=== PATIENT | male | born 1940 | race Caucasian/White ===

== ENCOUNTER 2023-08-23 15:44 | Inpatient (IN) | payer MEDICARE ==
[~2023-08-23 15:44] MED LIST: Iopamidol-370 76% 500 ML MDV (1 ML CHARGE) ONE
[2023-08-23] MEDS ORDERED: NOREPINEPHRINE 8 MG/250 ML-D5W 250 ML ONE (16:04)
[2023-08-23 16:34] LABS: #Monocytes 0.3 thou/uL (0.11-0.59); #Neutrophils 3.8 thou/uL (1.40-6.50); %Basophils 0.3 % (0.0-1.0); %Eosinophils 0.6 % (0.0-10.0); %Monocytes 5.5 % (0.0-10.0); %Neutrophils 61.3 % (42.0-75.0); Hematocrit 33.3 % (42.0-52.0); Hemoglobin 11.3 g/dL (14.0-18.0); Mean Corpuscular HGB CONC 33.9 g/dL (32.0-36.0); Mean Corpuscular Hemoglobin 32.4 pg (27.0-31.0); Mean Corpuscular Volume 95.4 fl (78.0-98.0); Mean Platelet Volume 8.6 fL (7.4-10.4); Platelet Count 179 10x3/uL (130-400); RBC Distribution Width 14.1 % (11.5-14.5); Red Blood Cell (RBC) Count 3.49 mill/uL (4.70-6.10); White Blood Cell (WBC) Count 6.2 10x3/uL (4.8-10.8)
[2023-08-23 16:59] LABS: ALT (SGPT) 29 U/L (8-55); AST (SGOT) 26 U/L (5-34); Albumin 2.3 g/dL (3.4-4.8); Alkaline Phosphatase 54 U/L (40-110); Anion Gap 10 mmol/L (10-20); BUN (Urea Nitrogen) 23 mg/dL (8.4-25.7); Bilirubin, Total 0.6 mg/dL (0.2-1.2); CK (CPK) 44 U/L (30-200); Calc. Creatinine Clearance 0 mL/min (70-130); Calcium 7.5 mg/dL (7.8-10.44); Carbon Dioxide 22 mmol/L (23-31); Chloride 106 mmol/L (98-107); Estimated GFR 73; Globulin 2.1 g/dL (2.4-3.5); Glucose 118 mg/dL (83-110); Lipase 10 U/L (8-78); Potassium 4.2 mmol/L (3.5-5.1); Protein, Total 4.4 g/dL (5.8-8.1); Sodium 134 mmol/L (136-145)
[2023-08-23 17:03] LABS: Troponin I Less than 0.010 ng/mL (< 0.028)
[2023-08-23] MEDS ORDERED: Dexamethasone 10 MG/ML VIAL ONE (17:44)
[2023-08-23] MEDS ORDERED: Vasopressin 20 UNITS/ML VIAL ONE (17:55)
[2023-08-23] MEDS ORDERED: Ondansetron PF 4 MG/2 ML Vial IVP PRN (19:43)
[2023-08-23] MEDS ORDERED: Acetaminophen 325 MG (10.15 ML) UDCUP PO PRN (19:43)
[2023-08-23] MEDS ORDERED: Electrolyte Replacement Protocol IVPB SCH (19:43)
[2023-08-23] MEDS ORDERED: Hydrocortisone Sod Succ/PF 100 mg/2 ml Vial IVP SCH (20:00)
[2023-08-23] MEDS ORDERED: Glucagon 1 MG/ML KIT IM PRN (20:19)
[2023-08-23] MEDS ORDERED: Dextrose 50% Abboject 50 ML SYRINGE SLOW IVP PRN (20:19)
[2023-08-23] MEDS ORDERED: Dextrose 5% in Water 1,000 ML IV PRN (20:19)
[2023-08-23] MEDS ORDERED: Sodium Chloride 0.9% 1,000 ML IV SCH ×2 (20:30→23:45)
[2023-08-23] MEDS: NOREPINEPHRINE 8 MG/250 ML-D5W 250 ML IVPB PRN (21:00)
[2023-08-23] MEDS ORDERED: Piperacillin/Tazobactam 3.375 GM in Sodium Chloride 0.9% 100 ML IVPB SCH (23:00)
[2023-08-23] MEDS ORDERED: Albumin 25% 25 GM (100 mL) BOT IVPB SCH (23:00)
[2023-08-23] MEDS ORDERED: DOBUTamine 500 mg/250 ml 250 ML IVPB SCH (23:15)
[2023-08-23 23:30] LABS: Lactic Acid 3.1 mmol/L (0.5-2.2)
[2023-08-23 23:37] LABS: #Monocytes 1.2 thou/uL (0.11-0.59); #Neutrophils 20.2 thou/uL (1.40-6.50); %Basophils 0.2 % (0.0-1.0); %Lymphocytes 3.2 % (21.0-51.0); %Monocytes 5.5 % (0.0-10.0); %Neutrophils 90.3 % (42.0-75.0); Mean Corpuscular HGB CONC 33.8 g/dL (32.0-36.0); Mean Corpuscular Hemoglobin 32.4 pg (27.0-31.0); Mean Corpuscular Volume 96.1 fl (78.0-98.0); Mean Platelet Volume 9.1 fL (7.4-10.4); Platelet Count 217 10x3/uL (130-400); RBC Distribution Width 13.8 % (11.5-14.5)
[2023-08-23] MEDS ORDERED: DOBUTamine 500 mg/250 ml 0 ML ONE (23:42)
[2023-08-23 23:46] LABS: ALT (SGPT) 36 U/L (8-55); AST (SGOT) 42 U/L (5-34); Albumin 2.7 g/dL (3.4-4.8); Alkaline Phosphatase 73 U/L (40-110); Anion Gap 17 mmol/L (10-20); BUN (Urea Nitrogen) 29 mg/dL (8.4-25.7); Bilirubin, Total 1.2 mg/dL (0.2-1.2); Calc. Creatinine Clearance 0 mL/min (70-130); Calcium 7.1 mg/dL (7.8-10.44); Carbon Dioxide 14 mmol/L (23-31); Chloride 107 mmol/L (98-107); Estimated GFR 49; Globulin 2.4 g/dL (2.4-3.5); Glucose 184 mg/dL (83-110); Potassium 4.5 mmol/L (3.5-5.1); Protein, Total 5.1 g/dL (5.8-8.1); Sodium 133 mmol/L (136-145)
[2023-08-23 23:47] LABS: Hematocrit 47.1 % (42.0-52.0); Hemoglobin 15.9 g/dL (14.0-18.0); White Blood Cell (WBC) Count 22.4 10x3/uL (4.8-10.8)
[2023-08-24 00:02] VITALS: BMI 32.0
[2023-08-24 00:36] LABS: CO2 Tension 36.2 mmHg (35.0-45.0); Calcium, Ionized (arterial) 1.01 mmol/L (1.12-1.30); Carboxyhemoglobin (COHb) 1.4 gm% (0.0-3.0); Hematocrit-ABG 43 % (42.0-52.0); Hemoglobin (Hb) 14.6 g/dL (14.0-18.0); O2 Tension (PaO2), arterial 86.5 mmHg (> 60.0)
[2023-08-24 00:37] LABS: Actual Bicarbonate (HCO3a) 13.3 mEq/L (22-28); pH, Arterial 7.184 (7.35-7.45)
[2023-08-24 00:38] LABS: Puncture Site Arterial Line
[2023-08-24] MEDS: NOREPINEPHRINE 8 MG/250 ML-D5W 250 ML IVPB PRN ×2 (00:45→09:47)
[2023-08-24] MEDS ORDERED: Sodium Bicarbonate 150 MEQ in Dextrose 5% in Water 1,000 ML IV SCH (00:45)
[2023-08-24] MEDS ORDERED: Lactated Ringer's 1,000 ML IV SCH ×2 (00:45→01:45)
[2023-08-24] MEDS ORDERED: Sodium Bicarb 50 MEQ/50 ML VIAL IVP SCH ×2 (00:45→00:53)
[2023-08-24 00:54] LABS: Bilirubin Negative (Negative); Blood, Urine Negative (Negative); Glucose, Urine (Dipstick) Negative (Negative); Ketone, Urine Trace mg/dL (Negative); Leukocyte Negative (Negative); Nitrite Negative (Negative); Protein, Urine (Dipstick) 100 mg/dL (Neg-Trace)
[2023-08-24 00:55] LABS: Clarity Clear (Clear)
[2023-08-24] MEDS ORDERED: Sodium Bicarb 50 MEQ/50 ML VIAL ONE ×2 (00:56→01:36)
[2023-08-24 00:58] LABS: Bacteria/HPF None Seen HPF (None Seen); CAUTI Indications for Culture Dysuria,urgency,freq; RBC/HPF 0-3 HPF (0-3); Squamous Epithelial None Seen HPF (0-3); WBC/HPF 0-3 HPF (0-3)
[2023-08-24 00:59] LABS: Urine Culture Reflex No No
[2023-08-24] MEDS ORDERED: Sodium Bicarbonate 150 MEQ in Sterile Water 1,000 ML IV SCH (01:15)
[2023-08-24] MEDS ORDERED: Calcium Chloride 1 GM/10 ML Abboject SYRINGE ONE (01:37)
[2023-08-24] MEDS ORDERED: Calcium Chloride 1 GM/10 ML Abboject SYRINGE IVP SCH (01:45)
[2023-08-24] MEDS ORDERED: Sodium Bicarb 50 MEQ/50 ML Abboject 8.4% SYRINGE IVP SCH (01:45)
[2023-08-24] MEDS: Sodium Bicarbonate 150 MEQ in Sterile Water 1,000 ML IV SCH ×3 (01:54→15:44)
[2023-08-24 03:16] LABS: Lactic Acid 5.1 mmol/L (0.5-2.2)
[2023-08-24 03:42] LABS: Hemoglobin 13.5 g/dL (14.0-18.0); Manual Diff?? YES; Mean Corpuscular HGB CONC 33.8 g/dL (32.0-36.0); Mean Corpuscular Hemoglobin 32.4 pg (27.0-31.0); Mean Corpuscular Volume 95.9 fl (78.0-98.0); Mean Platelet Volume 8.9 fL (7.4-10.4); Platelet Count 169 10x3/uL (130-400); Red Blood Cell (RBC) Count 4.17 mill/uL (4.70-6.10); White Blood Cell (WBC) Count 15.4 10x3/uL (4.8-10.8)
[2023-08-24 03:44] LABS: Delete Auto Diff?? YES
[2023-08-24 04:00] LABS: Prothrombin Time 62.2 sec (12.0-14.7)
[2023-08-24 04:05] LABS: ALT (SGPT) 25 U/L (8-55); AST (SGOT) 30 U/L (5-34); Albumin 2.6 g/dL (3.4-4.8); Alkaline Phosphatase 49 U/L (40-110); Anion Gap 17 mmol/L (10-20); BUN (Urea Nitrogen) 32 mg/dL (8.4-25.7); Bilirubin, Total 1.2 mg/dL (0.2-1.2); Calc. Creatinine Clearance 55 mL/min (70-130); Calcium 7.3 mg/dL (7.8-10.44); Carbon Dioxide 17 mmol/L (23-31); Chloride 107 mmol/L (98-107); Estimated GFR 49; Globulin 1.6 g/dL (2.4-3.5); Glucose 225 mg/dL (83-110); Potassium 4.4 mmol/L (3.5-5.1); Protein, Total 4.2 g/dL (5.8-8.1); Sodium 137 mmol/L (136-145)
[2023-08-24 04:14] LABS: INR-International Normal Ratio 6.8
[2023-08-24] MEDS ORDERED: Phytonadione 10 MG/ML AMP SLOW IVP SCH ×2 (04:15→04:20)
[2023-08-24] MEDS ORDERED: [UNRECOGNIZED DRUG - OTHER] IV SCH (04:30)
[2023-08-24] MEDS ORDERED: HUM PROTHROMBIN CPLX IV SCH (04:30)
[2023-08-24] MEDS ORDERED: Mineral Oil ENEMA PR SCH (04:30)
[2023-08-24] MEDS ORDERED: HUMAN PROTHROMBIN COMPLX IV SCH (04:30)
[2023-08-24 04:33] LABS: Band 20 % (5-11); Lymphocytes 7 % (21-51); Metamyelocyte 1 % (0-0); Monocytes 3 % (0-10); Neutrophil 69 % (42-75)
[2023-08-24 04:37] LABS: Ovalocytes SLIGHT = 2-5 cells (100X) (0-1/hpf); Platelet Adequacy Comment Platelets Normal; Tear Drops SLIGHT = 2-5 cells (100X) (0-1/hpf)
[2023-08-24] MEDS: Hydrocortisone Sod Succ/PF 100 mg/2 ml Vial IVP SCH ×4 (04:41→19:57)
[2023-08-24] MEDS: Piperacillin/Tazobactam 3.375 GM in Sodium Chloride 0.9% 100 ML IVPB SCH ×3 (04:44→19:56)
[2023-08-24] MEDS: Albumin 25% 25 GM (100 mL) BOT IVPB SCH ×3 (05:55→17:09)
[2023-08-24 10:56] LABS: Lactic Acid 4.8 mmol/L (0.5-2.2)
[2023-08-24] MEDS ORDERED: Pantoprazole 40 MG VIAL IVP SCH (11:00)
[2023-08-24] MEDS ORDERED: Sodium Chloride 0.9% (PF) 10 ML VIAL FS PRN (11:00)
[2023-08-24] MEDS: HumaLOG 300 UNITS/3 ML VIAL SC PRN ×3 (12:19→20:14)
[2023-08-24] MEDS: Polyethylene Glycol 3350 17 GM Packet PO SCH ×3 (14:34→23:21)
[2023-08-24] MEDS: Vasopressin 20 UNITS in Sodium Chloride 0.9% 50 ML IV PRN (17:08)
[2023-08-25] MEDS: Sodium Bicarbonate 150 MEQ in Sterile Water 1,000 ML IV SCH (01:48)
[2023-08-25] MEDS: Hydrocortisone Sod Succ/PF 100 mg/2 ml Vial IVP SCH ×3 (01:49→16:01)
[2023-08-25] MEDS: Vasopressin 20 UNITS in Sodium Chloride 0.9% 50 ML IV PRN (01:55)
[2023-08-25] MEDS: Piperacillin/Tazobactam 3.375 GM in Sodium Chloride 0.9% 100 ML IVPB SCH ×3 (04:38→20:27)
[2023-08-25 05:00] LABS: INR-International Normal Ratio 2.4; Prothrombin Time 27.6 sec (12.0-14.7)
[2023-08-25 05:01] LABS: PTT 41.3 sec (22.9-36.1)
[2023-08-25 05:10] LABS: Phosphorus 3.8 mg/dL (2.3-4.7)
[2023-08-25 05:12] LABS: ALT (SGPT) 18 U/L (8-55); AST (SGOT) 27 U/L (5-34); Albumin 3.1 g/dL (3.4-4.8); Alkaline Phosphatase 34 U/L (40-110); Anion Gap 14 mmol/L (10-20); BUN (Urea Nitrogen) 38 mg/dL (8.4-25.7); Bilirubin, Total 0.9 mg/dL (0.2-1.2); Calc. Creatinine Clearance 62 mL/min (70-130); Carbon Dioxide 26 mmol/L (23-31); Chloride 101 mmol/L (98-107); Estimated GFR 55; Globulin 1.5 g/dL (2.4-3.5); Glucose 149 mg/dL (83-110); Magnesium 1.6 mg/dL (1.6-2.6); Potassium 4.5 mmol/L (3.5-5.1); Protein, Total 4.6 g/dL (5.8-8.1); Sodium 136 mmol/L (136-145)
[2023-08-25 05:22] LABS: Calcium 6.6 mg/dL (7.8-10.44); Critical Call Chemistry NUR.KK6 @0521
[2023-08-25 05:44] LABS: Manual Diff?? YES; Mean Corpuscular HGB CONC 34.4 g/dL (32.0-36.0); Mean Corpuscular Hemoglobin 32.2 pg (27.0-31.0); Mean Corpuscular Volume 93.8 fl (78.0-98.0); Mean Platelet Volume 9.8 fL (7.4-10.4); RBC Distribution Width 14.4 % (11.5-14.5); Red Blood Cell (RBC) Count 3.04 mill/uL (4.70-6.10); White Blood Cell (WBC) Count 12.1 10x3/uL (4.8-10.8)
[2023-08-25 05:49] LABS: Delete Auto Diff?? YES; Hematocrit 28.5 % (42.0-52.0); Hemoglobin 9.8 g/dL (14.0-18.0); Platelet Count 85 10x3/uL (130-400)
[2023-08-25 06:14] LABS: Band 10 % (5-11); Lymphocytes 22 % (21-51); Neutrophil 68 % (42-75)
[2023-08-25 06:15] LABS: Hypochromia SLIGHT = 6-15 cells (100X) (0-5/hpf); Platelet Adequacy Comment Appears Decreased
[2023-08-25] MEDS ORDERED: Calcium Chloride 1 GM/10 ML Abboject SYRINGE IVP SCH ×2 (07:00→13:30)
[2023-08-25] MEDS ORDERED: Calcium Chloride 13.6 MEQ in Sodium Chloride 0.9% 100 ML IVPB SCH (07:30)
[2023-08-25] MEDS ORDERED: Magnesium 2 GM/50 ML(in water) 2 GM in Premix 1 BAG IVPB SCH (08:00)
[2023-08-25] MEDS: Polyethylene Glycol 3350 17 GM Packet PO SCH ×3 (08:18→20:24)
[2023-08-25] MEDS ORDERED: Pantoprazole 40 MG VIAL IVP SCH (09:00)
[2023-08-25 12:28] LABS: Hematocrit 29.9 % (42.0-52.0); Hemoglobin 10.1 g/dL (14.0-18.0); Manual Diff?? YES; Mean Corpuscular HGB CONC 33.8 g/dL (32.0-36.0); Mean Corpuscular Hemoglobin 32.3 pg (27.0-31.0); Mean Corpuscular Volume 95.5 fl (78.0-98.0); Mean Platelet Volume 9.8 fL (7.4-10.4); RBC Distribution Width 14.6 % (11.5-14.5); Red Blood Cell (RBC) Count 3.13 mill/uL (4.70-6.10); White Blood Cell (WBC) Count 12.9 10x3/uL (4.8-10.8)
[2023-08-25 12:35] LABS: Platelet Count 86 10x3/uL (130-400)
[2023-08-25 12:36] LABS: Delete Auto Diff?? YES
[2023-08-25 12:44] LABS: Lactic Acid 1.2 mmol/L (0.5-2.2)
[2023-08-25 12:54] LABS: ALT (SGPT) 21 U/L (8-55); AST (SGOT) 31 U/L (5-34); Albumin 3.1 g/dL (3.4-4.8); Alkaline Phosphatase 43 U/L (40-110); Anion Gap 10 mmol/L (10-20); BUN (Urea Nitrogen) 36 mg/dL (8.4-25.7); Bilirubin, Total 0.9 mg/dL (0.2-1.2); Calc. Creatinine Clearance 66 mL/min (70-130); Carbon Dioxide 31 mmol/L (23-31); Chloride 98 mmol/L (98-107); Estimated GFR 57; Globulin 1.9 g/dL (2.4-3.5); Glucose 118 mg/dL (83-110); Magnesium 2.1 mg/dL (1.6-2.6); Phosphorus 3.6 mg/dL (2.3-4.7); Potassium 4.2 mmol/L (3.5-5.1); Sodium 135 mmol/L (136-145)
[2023-08-25 13:01] LABS: Band 33 % (5-11); Lymphocytes 3 % (21-51); Metamyelocyte 3 % (0-0); Monocytes 2 % (0-10); Neutrophil 56 % (42-75); Platelet Adequacy Comment Platelets Decreased; Polychromasia SLIGHT = 2-3 cells (100X) (0-2/hpf); Reactive Lymphocytes 3 % (0-10)
[2023-08-25 13:05] LABS: Calcium 6.9 mg/dL (7.8-10.44)
[2023-08-25 14:17] LABS: Actual Bicarbonate (HCO3v) 28.5 mEq/L (22-28); Base Excess 2.9 mEq/L (-2.0 to +3.0); Calcium, Ionized (venous) 0.93 mmol/L (1.16-1.32); Chloride (VBG) 97 mmol/L (98-106); Hematocrit-VBG 32 % (42.0-52.0); Hemoglobin (Hb) 10.8 g/dL (12.6-17.4); Potassium (VBG) 3.98 mmol/L (3.70-5.30); Sodium 133 mmol/L (133-146); pH (venous) 7.388 (7.32-7.43)
[2023-08-25 14:35] LABS: Campy jejuni + coli by PCR Negative (Negative); STEC Shiga Toxin 1+2 Negative (Negative); Salmonella spp. by PCR Negative (Negative); Shigella spp + EIEC by PCR Negative (Negative)
[2023-08-26] MEDS: Hydrocortisone Sod Succ/PF 100 mg/2 ml Vial IVP SCH ×2 (03:29→16:47)
[2023-08-26] MEDS: Piperacillin/Tazobactam 3.375 GM in Sodium Chloride 0.9% 100 ML IVPB SCH ×3 (03:29→20:23)
[2023-08-26 03:56] LABS: Hematocrit 29.6 % (42.0-52.0); Hemoglobin 10.1 g/dL (14.0-18.0); Manual Diff?? YES; Mean Corpuscular HGB CONC 34.1 g/dL (32.0-36.0); Mean Corpuscular Hemoglobin 32.1 pg (27.0-31.0); Mean Platelet Volume 9.7 fL (7.4-10.4); RBC Distribution Width 14.6 % (11.5-14.5); Red Blood Cell (RBC) Count 3.15 mill/uL (4.70-6.10); White Blood Cell (WBC) Count 10.7 10x3/uL (4.8-10.8)
[2023-08-26 03:58] LABS: Delete Auto Diff?? YES; Platelet Count 83 10x3/uL (130-400)
[2023-08-26 04:29] LABS: Band 8 % (5-11); Lymphocytes 12 % (21-51); Neutrophil 80 % (42-75)
[2023-08-26 04:30] LABS: Smudge Cells SLIGHT
[2023-08-26 04:31] LABS: Platelet Adequacy Comment Platelets Decreased; RBC Morph Comment Within Normal Limits
[2023-08-26] MEDS: Polyethylene Glycol 3350 17 GM Packet PO SCH ×2 (08:24→09:26)
[2023-08-26] MEDS ORDERED: Non-Formulary Item 1 EACH (Diltiazem Hcl [Diltiazem 24hr Er] 180 MG Cap.Sa.24h) PO SCH (10:07)
[2023-08-26] MEDS ORDERED: DULoxetine 60 MG CAP PO SCH ×2 (10:07→10:30)
[2023-08-26 10:24] LABS: ALT (SGPT) 30 U/L (8-55); AST (SGOT) 54 U/L (5-34); Alkaline Phosphatase 64 U/L (40-110); Anion Gap 15 mmol/L (10-20); BUN (Urea Nitrogen) 39 mg/dL (8.4-25.7); Bilirubin, Total 1.1 mg/dL (0.2-1.2); Calc. Creatinine Clearance 68 mL/min (70-130); Calcium 7.4 mg/dL (7.8-10.44); Carbon Dioxide 26 mmol/L (23-31); Chloride 100 mmol/L (98-107); Estimated GFR 56; Globulin 2.2 g/dL (2.4-3.5); Glucose 165 mg/dL (83-110); Magnesium 2.1 mg/dL (1.6-2.6); Potassium 3.9 mmol/L (3.5-5.1); Protein, Total 5.2 g/dL (5.8-8.1); Sodium 137 mmol/L (136-145)
[2023-08-26] MEDS ORDERED: Nystatin Powder 15 GM BOT TOP PRN (10:27)
[2023-08-26] MEDS ORDERED: Furosemide 20 MG (2 mL) VIAL SLOW IVP SCH (10:30)
[2023-08-26] MEDS ORDERED: dilTIAZem CD 180 MG CAP PO SCH (10:30)
[2023-08-26 12:02] LABS: INR-International Normal Ratio 1.7; Prothrombin Time 20.2 sec (12.0-14.7)
[2023-08-26] MEDS: Warfarin Sodium 5 MG TAB PO SCH (16:47)
[2023-08-26] MEDS: Gabapentin 400 MG CAP PO SCH (20:23)
[2023-08-26] MEDS: risperiDONE 1 MG TAB PO SCH (20:23)
[2023-08-26] MEDS: Rosuvastatin 10 MG TAB PO SCH (20:24)
[2023-08-26] MEDS: DULoxetine 60 MG CAP PO SCH (20:24)
[2023-08-26] MEDS: HumaLOG 300 UNITS/3 ML VIAL SC PRN (21:39)
[2023-08-27] MEDS: Piperacillin/Tazobactam 3.375 GM in Sodium Chloride 0.9% 100 ML IVPB SCH ×3 (04:49→19:43)
[2023-08-27] MEDS: HumaLOG 300 UNITS/3 ML VIAL SC PRN ×4 (06:00→19:59)
[2023-08-27 07:29] LABS: #Monocytes 0.7 thou/uL (0.11-0.59); %Basophils 0.1 % (0.0-1.0); %Eosinophils 0.2 % (0.0-10.0); %Lymphocytes 8.2 % (21.0-51.0); %Monocytes 5.4 % (0.0-10.0); %Neutrophils 85.8 % (42.0-75.0); Hematocrit 30.8 % (42.0-52.0); Hemoglobin 10.5 g/dL (14.0-18.0); Mean Corpuscular HGB CONC 34.1 g/dL (32.0-36.0); Mean Corpuscular Hemoglobin 31.8 pg (27.0-31.0); Mean Corpuscular Volume 93.3 fl (78.0-98.0); Platelet Count 106 10x3/uL (130-400); RBC Distribution Width 14.2 % (11.5-14.5); White Blood Cell (WBC) Count 12.8 10x3/uL (4.8-10.8)
[2023-08-27 07:37] LABS: INR-International Normal Ratio 1.4; Prothrombin Time 17.9 sec (12.0-14.7)
[2023-08-27 07:54] LABS: ALT (SGPT) 30 U/L (8-55); AST (SGOT) 47 U/L (5-34); Albumin 2.8 g/dL (3.4-4.8); Alkaline Phosphatase 75 U/L (40-110); Anion Gap 13 mmol/L (10-20); BUN (Urea Nitrogen) 38 mg/dL (8.4-25.7); Bilirubin, Total 1.2 mg/dL (0.2-1.2); Calc. Creatinine Clearance 67 mL/min (70-130); Calcium 7.4 mg/dL (7.8-10.44); Carbon Dioxide 27 mmol/L (23-31); Chloride 100 mmol/L (98-107); Estimated GFR 58; Globulin 2.5 g/dL (2.4-3.5); Glucose 178 mg/dL (83-110); Potassium 3.2 mmol/L (3.5-5.1); Protein, Total 5.3 g/dL (5.8-8.1); Sodium 137 mmol/L (136-145)
[2023-08-27] MEDS: Gabapentin 400 MG CAP PO SCH ×2 (08:07→19:43)
[2023-08-27] MEDS: dilTIAZem CD 180 MG CAP PO SCH (08:08)
[2023-08-27] MEDS: DULoxetine 60 MG CAP PO SCH ×2 (08:08→19:43)
[2023-08-27] MEDS ORDERED: Potassium Chloride 20 MEQ TAB PO SCH (09:00)
[2023-08-27] MEDS ORDERED: Hydrocortisone Sod Succ/PF 100 mg/2 ml Vial IVP SCH (09:00)
[2023-08-27] MEDS ORDERED: Furosemide 40 MG (4 mL) VIAL SLOW IVP SCH (11:15)
[2023-08-27] MEDS: Potassium Chloride 20 MEQ TAB PO SCH (16:46)
[2023-08-27] MEDS ORDERED: Warfarin Sodium 5 MG TAB PO SCH (17:00)
[2023-08-27] MEDS ORDERED: Warfarin Sodium 3.75 MG HALF.TAB PO SCH (17:00)
[2023-08-27] MEDS: Rosuvastatin 10 MG TAB PO SCH (19:43)
[2023-08-27] MEDS: risperiDONE 1 MG TAB PO SCH (19:43)
[2023-08-28] MEDS: Piperacillin/Tazobactam 3.375 GM in Sodium Chloride 0.9% 100 ML IVPB SCH ×3 (03:57→20:01)
[2023-08-28] MEDS: DULoxetine 60 MG CAP PO SCH ×2 (08:47→20:02)
[2023-08-28] MEDS: dilTIAZem CD 180 MG CAP PO SCH (08:48)
[2023-08-28] MEDS: Gabapentin 400 MG CAP PO SCH ×2 (08:48→20:02)
[2023-08-28] MEDS: Potassium Chloride 20 MEQ TAB PO SCH (08:48)
[2023-08-28] MEDS: HumaLOG 300 UNITS/3 ML VIAL SC PRN ×4 (08:50→20:08)
[2023-08-28 10:15] LABS: #Eosinphils 0.1 thou/uL (0.0-0.7); #Neutrophils 7.5 thou/uL (1.40-6.50); %Basophils 0.1 % (0.0-1.0); %Eosinophils 1.5 % (0.0-10.0); %Neutrophils 78.1 % (42.0-75.0); Mean Corpuscular HGB CONC 33.3 g/dL (32.0-36.0); Mean Corpuscular Hemoglobin 31.3 pg (27.0-31.0); Platelet Count 100 10x3/uL (130-400); RBC Distribution Width 14.6 % (11.5-14.5); Red Blood Cell (RBC) Count 3.19 mill/uL (4.70-6.10); White Blood Cell (WBC) Count 9.6 10x3/uL (4.8-10.8)
[2023-08-28 10:31] LABS: INR-International Normal Ratio 1.5; Prothrombin Time 18.6 sec (12.0-14.7)
[2023-08-28 10:42] LABS: ALT (SGPT) 27 U/L (8-55); AST (SGOT) 33 U/L (5-34); Albumin 2.8 g/dL (3.4-4.8); Alkaline Phosphatase 65 U/L (40-110); Anion Gap 10 mmol/L (10-20); BUN (Urea Nitrogen) 42 mg/dL (8.4-25.7); Bilirubin, Total 1.2 mg/dL (0.2-1.2); Calc. Creatinine Clearance 62 mL/min (70-130); Calcium 7.5 mg/dL (7.8-10.44); Carbon Dioxide 29 mmol/L (23-31); Chloride 99 mmol/L (98-107); Estimated GFR 51; Globulin 2.3 g/dL (2.4-3.5); Glucose 253 mg/dL (83-110); Potassium 3.6 mmol/L (3.5-5.1); Protein, Total 5.1 g/dL (5.8-8.1); Sodium 134 mmol/L (136-145)
[2023-08-28] MEDS ORDERED: Warfarin Sodium 3.75 MG HALF.TAB PO SCH (17:00)
[2023-08-28] MEDS: Rosuvastatin 10 MG TAB PO SCH (20:01)
[2023-08-28] MEDS: risperiDONE 1 MG TAB PO SCH (20:02)
[2023-08-29] MEDS: Piperacillin/Tazobactam 3.375 GM in Sodium Chloride 0.9% 100 ML IVPB SCH ×3 (03:23→20:38)
[2023-08-29] MEDS: HumaLOG 300 UNITS/3 ML VIAL SC PRN ×4 (06:05→17:27)
[2023-08-29 09:22] LABS: Hematocrit 31.3 % (42.0-52.0); Hemoglobin 10.5 g/dL (14.0-18.0); Manual Diff?? YES; Mean Corpuscular HGB CONC 33.5 g/dL (32.0-36.0); Mean Corpuscular Hemoglobin 31.8 pg (27.0-31.0); Mean Corpuscular Volume 94.8 fl (78.0-98.0); Platelet Count 124 10x3/uL (130-400); RBC Distribution Width 14.7 % (11.5-14.5); White Blood Cell (WBC) Count 6.7 10x3/uL (4.8-10.8)
[2023-08-29] MEDS: DULoxetine 60 MG CAP PO SCH ×2 (09:26→20:39)
[2023-08-29] MEDS: dilTIAZem CD 180 MG CAP PO SCH (09:26)
[2023-08-29] MEDS: Gabapentin 400 MG CAP PO SCH ×2 (09:26→20:39)
[2023-08-29 10:19] LABS: Delete Auto Diff?? YES
[2023-08-29 10:22] LABS: INR-International Normal Ratio 1.7; Prothrombin Time 20.2 sec (12.0-14.7)
[2023-08-29 11:16] LABS: Band 2 % (5-11); Eosinophils 1 % (0-10); Lymphocytes 26 % (21-51); Metamyelocyte 1 % (0-0); Monocytes 4 % (0-10); Neutrophil 66 % (42-75); Platelet Adequacy Comment Appears Decreased
[2023-08-29 15:28] LABS: ALT (SGPT) 23 U/L (8-55); AST (SGOT) 24 U/L (5-34); Albumin 2.6 g/dL (3.4-4.8); Alkaline Phosphatase 59 U/L (40-110); Anion Gap 14 mmol/L (10-20); BUN (Urea Nitrogen) 32 mg/dL (8.4-25.7); Bilirubin, Total 1.2 mg/dL (0.2-1.2); Calc. Creatinine Clearance 84 mL/min (70-130); Calcium 7.6 mg/dL (7.8-10.44); Carbon Dioxide 26 mmol/L (23-31); Chloride 103 mmol/L (98-107); Estimated GFR 75; Globulin 2.4 g/dL (2.4-3.5); Glucose 197 mg/dL (83-110); Potassium 3.8 mmol/L (3.5-5.1); Sodium 139 mmol/L (136-145)
[2023-08-29] MEDS: Warfarin Sodium 5 MG TAB PO SCH (17:26)
[2023-08-29] MEDS: risperiDONE 1 MG TAB PO SCH (20:39)
[2023-08-29] MEDS: Rosuvastatin 10 MG TAB PO SCH (20:39)
[2023-08-30] MEDS: Piperacillin/Tazobactam 3.375 GM in Sodium Chloride 0.9% 100 ML IVPB SCH ×3 (03:09→21:20)
[2023-08-30] MEDS: HumaLOG 300 UNITS/3 ML VIAL SC PRN ×2 (06:14→12:49)
[2023-08-30 06:44] LABS: Hematocrit 30.6 % (42.0-52.0); Manual Diff?? YES; Mean Corpuscular HGB CONC 32.7 g/dL (32.0-36.0); Mean Corpuscular Hemoglobin 31.4 pg (27.0-31.0); Mean Corpuscular Volume 96.2 fl (78.0-98.0); Mean Platelet Volume 9.7 fL (7.4-10.4); Platelet Count 137 10x3/uL (130-400); RBC Distribution Width 14.5 % (11.5-14.5); Red Blood Cell (RBC) Count 3.18 mill/uL (4.70-6.10); White Blood Cell (WBC) Count 6.2 10x3/uL (4.8-10.8)
[2023-08-30 07:05] LABS: INR-International Normal Ratio 1.7; Prothrombin Time 20.8 sec (12.0-14.7)
[2023-08-30 07:13] LABS: ALT (SGPT) 20 U/L (8-55); AST (SGOT) 17 U/L (5-34); Albumin 2.6 g/dL (3.4-4.8); Alkaline Phosphatase 49 U/L (40-110); Anion Gap 11 mmol/L (10-20); BUN (Urea Nitrogen) 25 mg/dL (8.4-25.7); Calc. Creatinine Clearance 84 mL/min (70-130); Calcium 7.7 mg/dL (7.8-10.44); Carbon Dioxide 27 mmol/L (23-31); Chloride 102 mmol/L (98-107); Estimated GFR 73; Globulin 2.1 g/dL (2.4-3.5); Glucose 212 mg/dL (83-110); Potassium 3.6 mmol/L (3.5-5.1); Protein, Total 4.7 g/dL (5.8-8.1); Sodium 136 mmol/L (136-145)
[2023-08-30 07:32] LABS: Delete Auto Diff?? YES
[2023-08-30] MEDS: dilTIAZem CD 180 MG CAP PO SCH (08:30)
[2023-08-30] MEDS: Gabapentin 400 MG CAP PO SCH ×2 (08:30→21:21)
[2023-08-30] MEDS: DULoxetine 60 MG CAP PO SCH ×2 (08:30→21:21)
[2023-08-30 08:53] LABS: Band 1 % (5-11); Eosinophils 1 % (0-10); Lymphocytes 29 % (21-51); Monocytes 10 % (0-10); Neutrophil 59 % (42-75)
[2023-08-30 08:54] LABS: Platelet Adequacy Comment Appears Adequate
[2023-08-30] MEDS ORDERED: Insulin Glargine 30 UNITS/0.3 ML VIAL SC SCH (09:45)
[2023-08-30] MEDS ORDERED: Warfarin Sodium 5 MG TAB PO SCH (17:00)
[2023-08-30] MEDS: Rosuvastatin 10 MG TAB PO SCH (21:21)
[2023-08-30] MEDS: risperiDONE 1 MG TAB PO SCH (21:21)
[2023-08-31] MEDS: Piperacillin/Tazobactam 3.375 GM in Sodium Chloride 0.9% 100 ML IVPB SCH ×3 (03:58→21:04)
[2023-08-31] MEDS: DULoxetine 60 MG CAP PO SCH ×2 (09:40→21:03)
[2023-08-31] MEDS: Insulin Glargine 30 UNITS/0.3 ML VIAL SC SCH (09:40)
[2023-08-31] MEDS: dilTIAZem CD 180 MG CAP PO SCH (09:40)
[2023-08-31] MEDS: Gabapentin 400 MG CAP PO SCH ×2 (09:40→21:03)
[2023-08-31 11:03] LABS: Hematocrit 31.2 % (42.0-52.0); Hemoglobin 10.5 g/dL (14.0-18.0); Manual Diff?? YES; Mean Corpuscular HGB CONC 33.7 g/dL (32.0-36.0); Mean Corpuscular Hemoglobin 32.2 pg (27.0-31.0); Mean Corpuscular Volume 95.7 fl (78.0-98.0); Mean Platelet Volume 9.4 fL (7.4-10.4); Platelet Count 187 10x3/uL (130-400); RBC Distribution Width 14.3 % (11.5-14.5); Red Blood Cell (RBC) Count 3.26 mill/uL (4.70-6.10); White Blood Cell (WBC) Count 6.9 10x3/uL (4.8-10.8)
[2023-08-31 11:18] LABS: Delete Auto Diff?? YES
[2023-08-31 11:20] LABS: INR-International Normal Ratio 2.1; Prothrombin Time 24.2 sec (12.0-14.7)
[2023-08-31 11:30] LABS: ALT (SGPT) 20 U/L (8-55); AST (SGOT) 22 U/L (5-34); Albumin 2.5 g/dL (3.4-4.8); Alkaline Phosphatase 54 U/L (40-110); Anion Gap 11 mmol/L (10-20); BUN (Urea Nitrogen) 19 mg/dL (8.4-25.7); Calc. Creatinine Clearance 92 mL/min (70-130); Calcium 7.7 mg/dL (7.8-10.44); Carbon Dioxide 29 mmol/L (23-31); Chloride 102 mmol/L (98-107); Estimated GFR 81; Globulin 2.4 g/dL (2.4-3.5); Glucose 224 mg/dL (83-110); Potassium 3.5 mmol/L (3.5-5.1); Protein, Total 4.9 g/dL (5.8-8.1); Sodium 138 mmol/L (136-145)
[2023-08-31 11:54] LABS: Band 2 % (5-11); Eosinophils 3 % (0-10); Lymphocytes 13 % (21-51); Neutrophil 72 % (42-75); Reactive Lymphocytes 4 % (0-10)
[2023-08-31 11:55] LABS: Monocytes 2 % (0-10)
[2023-08-31 11:56] LABS: Platelet Adequacy Comment Platelets Normal; Polychromasia SLIGHT = 2-3 cells (100X) (0-2/hpf)
[2023-08-31] MEDS ORDERED: Potassium Chloride 20 MEQ TAB PO SCH (12:30)
[2023-08-31] MEDS ORDERED: Warfarin Sodium 3.75 MG HALF.TAB PO SCH (17:00)
[2023-08-31] MEDS ORDERED: Polyethylene Glycol 3350 17 GM Packet PO PRN (17:20)
[2023-08-31] MEDS ORDERED: Bisacodyl 10 MG SUPP PR SCH (17:45)
[2023-08-31] MEDS: risperiDONE 1 MG TAB PO SCH (21:03)
[2023-08-31] MEDS: Rosuvastatin 10 MG TAB PO SCH (21:03)
[2023-08-31] MEDS: HumaLOG 300 UNITS/3 ML VIAL SC PRN (21:04)
[2023-09-01] MEDS: Piperacillin/Tazobactam 3.375 GM in Sodium Chloride 0.9% 100 ML IVPB SCH (03:03)
[2023-09-01 08:04] LABS: INR-International Normal Ratio 2.1; Prothrombin Time 24.9 sec (12.0-14.7)
[2023-09-01] MEDS: dilTIAZem CD 180 MG CAP PO SCH (08:56)
[2023-09-01] MEDS: Gabapentin 400 MG CAP PO SCH ×2 (08:56→20:19)
[2023-09-01] MEDS: DULoxetine 60 MG CAP PO SCH ×2 (08:56→20:19)
[2023-09-01] MEDS: Insulin Glargine 30 UNITS/0.3 ML VIAL SC SCH (08:56)
[2023-09-01] MEDS: Polyethylene Glycol 3350 17 GM Packet PO SCH (08:56)
[2023-09-01] MEDS: Carvedilol 3.125 MG TAB PO SCH ×2 (08:56→16:19)
[2023-09-01] MEDS ORDERED: Albumin 25% 25 GM (100 mL) BOT IVPB SCH ×2 (12:00→12:15)
[2023-09-01] MEDS: Bisacodyl 10 MG SUPP PR SCH (12:24)
[2023-09-01 13:12] LABS: #Eosinphils 0.1 thou/uL (0.0-0.7); #Monocytes 0.7 thou/uL (0.11-0.59); #Neutrophils 6.5 thou/uL (1.40-6.50); %Basophils 0.1 % (0.0-1.0); %Eosinophils 1.4 % (0.0-10.0); %Lymphocytes 11.8 % (21.0-51.0); %Monocytes 8.2 % (0.0-10.0); %Neutrophils 78.1 % (42.0-75.0); Hematocrit 28.6 % (42.0-52.0); Hemoglobin 9.6 g/dL (14.0-18.0); Mean Corpuscular HGB CONC 33.6 g/dL (32.0-36.0); Mean Corpuscular Hemoglobin 32.2 pg (27.0-31.0); Mean Platelet Volume 9.1 fL (7.4-10.4); Platelet Count 216 10x3/uL (130-400); RBC Distribution Width 14.4 % (11.5-14.5); Red Blood Cell (RBC) Count 2.98 mill/uL (4.70-6.10); White Blood Cell (WBC) Count 8.4 10x3/uL (4.8-10.8)
[2023-09-01 13:26] LABS: Anion Gap 12 mmol/L (10-20); BUN (Urea Nitrogen) 13 mg/dL (8.4-25.7); Calc. Creatinine Clearance 94 mL/min (70-130); Calcium 7.9 mg/dL (7.8-10.44); Carbon Dioxide 27 mmol/L (23-31); Chloride 103 mmol/L (98-107); Estimated GFR 84; Glucose 167 mg/dL (83-110); Potassium 4.1 mmol/L (3.5-5.1); Sodium 138 mmol/L (136-145)
[2023-09-01] MEDS: Warfarin Sodium 3.75 MG HALF.TAB PO SCH (16:19)
[2023-09-01] MEDS ORDERED: Furosemide 40 MG (4 mL) VIAL SLOW IVP SCH (17:00)
[2023-09-01] MEDS: Rosuvastatin 10 MG TAB PO SCH (20:19)
[2023-09-01] MEDS: risperiDONE 1 MG TAB PO SCH (20:19)
[2023-09-02 06:36] LABS: #Eosinphils 0.1 thou/uL (0.0-0.7); #Monocytes 0.7 thou/uL (0.11-0.59); #Neutrophils 5.3 thou/uL (1.40-6.50); %Basophils 0.1 % (0.0-1.0); %Eosinophils 1.6 % (0.0-10.0); %Lymphocytes 16.4 % (21.0-51.0); %Neutrophils 71.4 % (42.0-75.0); Hemoglobin 9.7 g/dL (14.0-18.0); Mean Corpuscular HGB CONC 33.4 g/dL (32.0-36.0); Mean Corpuscular Volume 95.7 fl (78.0-98.0); Platelet Count 233 10x3/uL (130-400); RBC Distribution Width 14.3 % (11.5-14.5); Red Blood Cell (RBC) Count 3.03 mill/uL (4.70-6.10); White Blood Cell (WBC) Count 7.4 10x3/uL (4.8-10.8)
[2023-09-02 06:50] LABS: INR-International Normal Ratio 2.3
[2023-09-02 07:16] LABS: Anion Gap 11 mmol/L (10-20); BUN (Urea Nitrogen) 13 mg/dL (8.4-25.7); Calc. Creatinine Clearance 108 mL/min (70-130); Carbon Dioxide 31 mmol/L (23-31); Chloride 99 mmol/L (98-107); Estimated GFR 89; Glucose 152 mg/dL (83-110); Potassium 3.2 mmol/L (3.5-5.1); Sodium 138 mmol/L (136-145)
[2023-09-02] MEDS: Gabapentin 400 MG CAP PO SCH ×2 (08:36→22:15)
[2023-09-02] MEDS: DULoxetine 60 MG CAP PO SCH ×2 (08:36→22:15)
[2023-09-02] MEDS: Carvedilol 3.125 MG TAB PO SCH ×2 (08:36→17:50)
[2023-09-02] MEDS: dilTIAZem CD 180 MG CAP PO SCH (08:36)
[2023-09-02] MEDS: Insulin Glargine 30 UNITS/0.3 ML VIAL SC SCH (08:37)
[2023-09-02] MEDS: Polyethylene Glycol 3350 17 GM Packet PO SCH (08:37)
[2023-09-02] MEDS: Potassium Bicarbonate/Cit Ac 20 MEQ TAB PO SCH ×2 (08:56→11:01)
[2023-09-02] MEDS ORDERED: Furosemide 40 MG TAB PO SCH (10:30)
[2023-09-02] MEDS: Bisacodyl 10 MG SUPP PR SCH (11:00)
[2023-09-02] MEDS ORDERED: Warfarin Sodium 5 MG TAB PO SCH (17:00)
[2023-09-02] MEDS: Rosuvastatin 10 MG TAB PO SCH (22:15)
[2023-09-02] MEDS: Sacubitril 24MG/Valsartan 26 MG TAB PO SCH (22:15)
[2023-09-02] MEDS: risperiDONE 1 MG TAB PO SCH (22:16)
[2023-09-03 07:01] LABS: #Eosinphils 0.1 thou/uL (0.0-0.7); #Monocytes 0.8 thou/uL (0.11-0.59); #Neutrophils 5.9 thou/uL (1.40-6.50); %Basophils 0.1 % (0.0-1.0); %Eosinophils 1.2 % (0.0-10.0); %Lymphocytes 16.9 % (21.0-51.0); %Monocytes 10.1 % (0.0-10.0); %Neutrophils 71.2 % (42.0-75.0); Hematocrit 30.8 % (42.0-52.0); Hemoglobin 10.4 g/dL (14.0-18.0); Mean Corpuscular HGB CONC 33.8 g/dL (32.0-36.0); Mean Corpuscular Volume 94.8 fl (78.0-98.0); Mean Platelet Volume 8.7 fL (7.4-10.4); Platelet Count 271 10x3/uL (130-400); RBC Distribution Width 14.2 % (11.5-14.5); Red Blood Cell (RBC) Count 3.25 mill/uL (4.70-6.10); White Blood Cell (WBC) Count 8.3 10x3/uL (4.8-10.8)
[2023-09-03 07:29] LABS: INR-International Normal Ratio 2.3; Prothrombin Time 26.5 sec (12.0-14.7)
[2023-09-03] MEDS ORDERED: Furosemide 40 MG TAB PO SCH (07:30)
[2023-09-03 07:46] LABS: Anion Gap 10 mmol/L (10-20); BUN (Urea Nitrogen) 13 mg/dL (8.4-25.7); Calc. Creatinine Clearance 103 mL/min (70-130); Calcium 7.9 mg/dL (7.8-10.44); Carbon Dioxide 31 mmol/L (23-31); Chloride 97 mmol/L (98-107); Estimated GFR 88; Glucose 128 mg/dL (83-110); Potassium 3.2 mmol/L (3.5-5.1); Sodium 135 mmol/L (136-145)
[2023-09-03] MEDS ORDERED: Potassium Chloride 20 MEQ TAB PO SCH (08:30)
[2023-09-03] MEDS: Gabapentin 400 MG CAP PO SCH (08:34)
[2023-09-03] MEDS: Insulin Glargine 30 UNITS/0.3 ML VIAL SC SCH (08:34)
[2023-09-03] MEDS: DULoxetine 60 MG CAP PO SCH (08:34)
[2023-09-03] MEDS: dilTIAZem CD 180 MG CAP PO SCH (08:34)
[2023-09-03] MEDS: Carvedilol 3.125 MG TAB PO SCH ×2 (08:34→15:26)
[2023-09-03] MEDS: Sacubitril 24MG/Valsartan 26 MG TAB PO SCH (08:35)
[2023-09-03] MEDS: Polyethylene Glycol 3350 17 GM Packet PO SCH (08:35)
[2023-09-03] MEDS: Bisacodyl 10 MG SUPP PR SCH (08:43)
[2023-09-03 12:09] VITALS: BP 126/82; TEMP 97.4
[2023-09-03] MEDS: Warfarin Sodium 3.75 MG HALF.TAB PO SCH (15:26)
== END 2023-09-03 17:00 | DRG 871 ==
LOC: ERS 15:44 → CCU 18:38 → T4-B 08-25 18:04
PROVIDERS: ADMIT Internal Medicine; ATTEND Hospitalist
PROC: 02HV33Z Insertion of Infusion Device into Superior Vena Cava, Percutaneous Approach (ICD-10-PCS; principal; 2023-08-23)
PROC: 03HY32Z Insertion of Monitoring Device into Upper Artery, Percutaneous Approach (ICD-10-PCS; 2023-08-23)
PROC: 4A133B1 Monitoring of Arterial Pressure, Peripheral, Percutaneous Approach (ICD-10-PCS; 2023-08-23)
PROC: 4A133J1 Monitoring of Arterial Pulse, Peripheral, Percutaneous Approach (ICD-10-PCS; 2023-08-23)
PROC: 3E043XZ Introduction of Vasopressor into Central Vein, Percutaneous Approach (ICD-10-PCS; 2023-08-23)
PROC: 4A033R1 Measurement of Arterial Saturation, Peripheral, Percutaneous Approach (ICD-10-PCS; 2023-08-24)
PROC: 3E04329 Introduction of Other Anti-infective into Central Vein, Percutaneous Approach (ICD-10-PCS; 2023-08-24)
PROC: 30243J1 Transfusion of Nonautologous Serum Albumin into Central Vein, Percutaneous Approach (ICD-10-PCS; 2023-08-24)
DX: A41.9 Sepsis, unspecified organism (principal); J96.00 Acute respiratory failure, unspecified whether with hypoxia or hypercapnia; R57.1 Hypovolemic shock; N17.9 Acute kidney failure, unspecified; E87.20 Acidosis, unspecified; D68.9 Coagulation defect, unspecified; I50.22 Chronic systolic (congestive) heart failure; E87.1 Hypo-osmolality and hyponatremia; Z79.899 Other long term (current) drug therapy; Z79.4 Long term (current) use of insulin; E11.9 Type 2 diabetes mellitus without complications; I48.91 Unspecified atrial fibrillation; F32.A Depression, unspecified; K59.00 Constipation, unspecified; K52.89 Other specified noninfective gastroenteritis and colitis; E86.0 Dehydration; E83.51 Hypocalcemia; I11.0 Hypertensive heart disease with heart failure; D69.6 Thrombocytopenia, unspecified; M16.11 Unilateral primary osteoarthritis, right hip; E88.09 Other disorders of plasma-protein metabolism, not elsewhere classified; Z66 Do not resuscitate; M79.2 Neuralgia and neuritis, unspecified
CPT/HCPCS: 36415; 36416; 36556; 71045; 71275; 74018; 74019; 74174; 80048; 80053; 81001; 82140; 82550; 82805; 83605; 83690; 83735; 83880; 84100; 84145; 84484; 85025; 85384; 85610; 85730; 87040; 87324; 87449; 87505; 93005; 93306; 96374; 96375; 99292; A4217; C9113; J1100; J1720; J1815; J1940; J2543; J3430; J3475; J3490; J7050; J7070; J7120; J7168; P9047; Q9967

== ENCOUNTER 2023-10-08 20:47 | Inpatient (IN) | payer MEDICARE ==
[2023-10-08 21:31] LABS: #Eosinphils 0.1 thou/uL (0.0-0.7); #Monocytes 0.4 thou/uL (0.11-0.59); #Neutrophils 3.2 thou/uL (1.40-6.50); %Basophils 0.5 % (0.0-1.0); %Eosinophils 2.1 % (0.0-10.0); %Lymphocytes 14.9 % (21.0-51.0); %Monocytes 10.1 % (0.0-10.0); %Neutrophils 72.2 % (42.0-75.0); Hematocrit 27.8 % (42.0-52.0); Hemoglobin 9.6 g/dL (14.0-18.0); Mean Corpuscular HGB CONC 34.5 g/dL (32.0-36.0); Mean Corpuscular Volume 92.7 fl (78.0-98.0); Platelet Count 133 10x3/uL (130-400); RBC Distribution Width 14.4 % (11.5-14.5); White Blood Cell (WBC) Count 4.4 10x3/uL (4.8-10.8)
[2023-10-08] MEDS ORDERED: Cefepime 2 GM VIAL ONE (21:32)
[2023-10-08] MEDS ORDERED: Vancomycin 1 GM/200 ML (FROZEN) BAG ONE (21:32)
[2023-10-08 21:55] LABS: ALT (SGPT) 10 U/L (8-55); AST (SGOT) 16 U/L (5-34); Alkaline Phosphatase 54 U/L (40-110); Anion Gap 12 mmol/L (10-20); BUN (Urea Nitrogen) 28 mg/dL (8.4-25.7); Bilirubin, Total 0.5 mg/dL (0.2-1.2); CK (CPK) 49 U/L (30-200); Calc. Creatinine Clearance 0 mL/min (70-130); Calcium 8.1 mg/dL (7.8-10.44); Carbon Dioxide 26 mmol/L (23-31); Chloride 98 mmol/L (98-107); Estimated GFR 56; Globulin 2.6 g/dL (2.4-3.5); Glucose 168 mg/dL (83-110); Lipase 5 U/L (8-78); Magnesium 1.5 mg/dL (1.6-2.6); Potassium 3.8 mmol/L (3.5-5.1); Protein, Total 5.6 g/dL (5.8-8.1); Sodium 132 mmol/L (136-145)
[2023-10-08 21:58] LABS: Troponin I 0.014 ng/mL (< 0.028)
[2023-10-08 22:13] LABS: INR-International Normal Ratio 1.8; PTT 40.5 sec (22.9-36.1)
[2023-10-08] MEDS ORDERED: Magnesium 2 GM/50 ML BAG (IN WATER) ONE (22:20)
[2023-10-08 22:57] LABS: SARS-CoV-2 NAA Rapid Test DETECTED (NotDetected)
[2023-10-08] MEDS ORDERED: DOPamine 400 MG/D5W 250 ML 250 ML ONE (23:52)
[2023-10-09] MEDS ORDERED: Dexamethasone 10 MG/ML VIAL ONE (00:23)
[2023-10-09 01:52] LABS: Bacteria/HPF None Seen HPF (None Seen); Bilirubin Negative (Negative); Blood, Urine Negative (Negative); CAUTI Indications for Culture Alt mental st,lethar; Clarity Clear (Clear); Glucose, Urine (Dipstick) Normal (Negative); Ketone, Urine Negative (Negative); Leukocyte Negative Leu/uL (Negative); Nitrite Negative (Negative); Protein, Urine (Dipstick) Negative (Neg-Trace); RBC/HPF 0-3 HPF (0-3); Specific Gravity, Urine 1.023 (1.002-1.036); Squamous Epithelial 0-3 HPF (0-3); Urobilinogen 3 mg/dL (Less than 2); WBC/HPF 0-3 HPF (0-3)
[2023-10-09 02:08] LABS: Urine Culture Reflex No No
[2023-10-09] MEDS ORDERED: Dextrose 50% Abboject 50 ML SYRINGE SLOW IVP PRN (02:32)
[2023-10-09] MEDS ORDERED: Ondansetron PF 4 MG/2 ML Vial IVP PRN (02:32)
[2023-10-09] MEDS ORDERED: Dextrose 5% in Water 1,000 ML IV PRN (02:32)
[2023-10-09] MEDS ORDERED: HumaLOG 300 UNITS/3 ML VIAL SC PRN (02:32)
[2023-10-09] MEDS ORDERED: Ondansetron ODT 4 MG TAB PO PRN (02:32)
[2023-10-09] MEDS ORDERED: Albuterol 200 PUFF (6.7GM INHALER) INH PRN (02:32)
[2023-10-09] MEDS ORDERED: Glucagon 1 MG/ML KIT IM PRN (02:32)
[2023-10-09] MEDS ORDERED: Acetaminophen 650 MG Suppository PR PRN (02:32)
[2023-10-09] MEDS ORDERED: REMDESIVIR 200 MG in Sodium Chloride 0.9% 250 ML 210 ML IV SCH (02:45)
[2023-10-09] MEDS ORDERED: Electrolyte Replacement Protocol 1 EACH FS SCH (03:00)
[2023-10-09 04:11] LABS: #Monocytes 0.2 thou/uL (0.11-0.59); #Neutrophils 3.8 thou/uL (1.40-6.50); %Basophils 0.2 % (0.0-1.0); %Eosinophils 0.4 % (0.0-10.0); %Lymphocytes 16.5 % (21.0-51.0); %Monocytes 3.4 % (0.0-10.0); %Neutrophils 79.5 % (42.0-75.0); Hematocrit 30.3 % (42.0-52.0); Hemoglobin 10.2 g/dL (14.0-18.0); Mean Corpuscular HGB CONC 33.7 g/dL (32.0-36.0); Mean Corpuscular Hemoglobin 31.6 pg (27.0-31.0); Mean Corpuscular Volume 93.8 fl (78.0-98.0); Mean Platelet Volume 9.3 fL (7.4-10.4); Platelet Count 139 10x3/uL (130-400); RBC Distribution Width 14.6 % (11.5-14.5); Red Blood Cell (RBC) Count 3.23 mill/uL (4.70-6.10); White Blood Cell (WBC) Count 4.7 10x3/uL (4.8-10.8)
[2023-10-09 04:32] LABS: Anion Gap 11 mmol/L (10-20); BUN (Urea Nitrogen) 24 mg/dL (8.4-25.7); Calc. Creatinine Clearance 72 mL/min (70-130); Carbon Dioxide 26 mmol/L (23-31); Chloride 100 mmol/L (98-107); Estimated GFR 73; Glucose 153 mg/dL (83-110); Potassium 3.7 mmol/L (3.5-5.1); Sodium 133 mmol/L (136-145)
[2023-10-09] MEDS: REMDESIVIR 200 MG in Sodium Chloride 0.9% 250 ML 210 ML IV SCH (05:07)
[2023-10-09] MEDS ORDERED: Enoxaparin 40 MG (0.4 mL) SYRINGE SC SCH (09:00)
[2023-10-09] MEDS: Cholecalciferol (Vitamin D3) 400 UNITS TAB PO SCH (09:24)
[2023-10-09] MEDS: Zinc Sulfate 220 MG CAP PO SCH (09:24)
[2023-10-09] MEDS: Pantoprazole 40 MG VIAL IVP SCH (09:24)
[2023-10-09] MEDS: Ascorbic Acid 500 mg Chewable Tablet PO SCH (09:24)
[2023-10-09] MEDS: HumaLOG 300 UNITS/3 ML VIAL SC PRN (11:32)
[2023-10-09] MEDS: Warfarin Sodium 3.75 MG HALF.TAB PO SCH (17:29)
[2023-10-09] MEDS: Carvedilol 3.125 MG TAB PO SCH (17:31)
[2023-10-09] MEDS: Rosuvastatin 10 MG TAB PO SCH (20:59)
[2023-10-09] MEDS: Gabapentin 400 MG CAP PO SCH (20:59)
[2023-10-09] MEDS: risperiDONE 1 MG TAB PO SCH (20:59)
[2023-10-09] MEDS: DULoxetine 60 MG CAP PO SCH (20:59)
[2023-10-09] MEDS: Sacubitril 24MG/Valsartan 26 MG TAB PO SCH (20:59)
[2023-10-10 06:36] LABS: ALT (SGPT) 9 U/L (8-55); AST (SGOT) 14 U/L (5-34)
[2023-10-10 06:39] LABS: INR-International Normal Ratio 1.6
[2023-10-10] MEDS: Furosemide 40 MG TAB PO SCH (08:56)
[2023-10-10] MEDS: dilTIAZem CD 180 MG CAP PO SCH (08:56)
[2023-10-10] MEDS: Polyethylene Glycol 3350 17 GM Packet PO SCH (08:56)
[2023-10-10] MEDS: Cholecalciferol 1,000 UNITS (25 MCG) TAB PO SCH (08:57)
[2023-10-10] MEDS: Insulin Glargine 30 UNITS/0.3 ML VIAL SC SCH (08:57)
[2023-10-10] MEDS: REMDESIVIR 100 MG in Sodium Chloride 0.9% 250 ML 230 ML IV SCH (10:13)
[2023-10-10] MEDS: Warfarin Sodium 5 MG TAB PO SCH (17:32)
[2023-10-11 06:54] LABS: %Basophils 0.3 % (0.0-1.0); %Eosinophils 1.3 % (0.0-10.0); %Monocytes 10.8 % (0.0-10.0); %Neutrophils 38.4 % (42.0-75.0); Hematocrit 33.1 % (42.0-52.0); Hemoglobin 11.2 g/dL (14.0-18.0); Mean Corpuscular HGB CONC 33.8 g/dL (32.0-36.0); Mean Corpuscular Hemoglobin 31.6 pg (27.0-31.0); Mean Corpuscular Volume 93.5 fl (78.0-98.0); Platelet Count 161 10x3/uL (130-400); RBC Distribution Width 14.6 % (11.5-14.5); Red Blood Cell (RBC) Count 3.54 mill/uL (4.70-6.10); White Blood Cell (WBC) Count 6.3 10x3/uL (4.8-10.8)
[2023-10-11 06:55] LABS: #Eosinphils 0.1 thou/uL (0.0-0.7); #Monocytes 0.7 thou/uL (0.11-0.59); #Neutrophils 2.4 thou/uL (1.40-6.50)
[2023-10-11 07:13] LABS: INR-International Normal Ratio 1.5; Prothrombin Time 18.2 sec (12.0-14.7)
[2023-10-11 07:27] LABS: ALT (SGPT) 12 U/L (8-55); AST (SGOT) 22 U/L (5-34)
[2023-10-12 07:09] LABS: #Eosinphils 0.2 thou/uL (0.0-0.7); #Monocytes 0.5 thou/uL (0.11-0.59); #Neutrophils 1.8 thou/uL (1.40-6.50); %Basophils 0.3 % (0.0-1.0); %Eosinophils 3.7 % (0.0-10.0); %Lymphocytes 55.8 % (21.0-51.0); %Monocytes 9.4 % (0.0-10.0); %Neutrophils 30.6 % (42.0-75.0); Hemoglobin 11.3 g/dL (14.0-18.0); Mean Corpuscular HGB CONC 33.2 g/dL (32.0-36.0); Mean Corpuscular Hemoglobin 30.9 pg (27.0-31.0); Mean Corpuscular Volume 92.9 fl (78.0-98.0); Mean Platelet Volume 9.1 fL (7.4-10.4); Platelet Count 167 10x3/uL (130-400); RBC Distribution Width 14.6 % (11.5-14.5); Red Blood Cell (RBC) Count 3.66 mill/uL (4.70-6.10); White Blood Cell (WBC) Count 5.8 10x3/uL (4.8-10.8)
[2023-10-12 07:31] LABS: INR-International Normal Ratio 1.4; Prothrombin Time 17.2 sec (12.0-14.7)
[2023-10-12 07:37] LABS: ALT (SGPT) 16 U/L (8-55); AST (SGOT) 25 U/L (5-34)
[2023-10-12] MEDS: Warfarin Sodium 5 MG TAB PO SCH (16:21)
[2023-10-12] MEDS: Benzonatate 100 MG CAP PO PRN (20:24)
[2023-10-13 04:44] LABS: #Eosinphils 0.2 thou/uL (0.0-0.7); #Monocytes 0.5 thou/uL (0.11-0.59); #Neutrophils 2.2 thou/uL (1.40-6.50); %Basophils 0.3 % (0.0-1.0); %Eosinophils 3.1 % (0.0-10.0); %Neutrophils 36.4 % (42.0-75.0); Hematocrit 32.3 % (42.0-52.0); Hemoglobin 10.9 g/dL (14.0-18.0); Mean Corpuscular HGB CONC 33.7 g/dL (32.0-36.0); Mean Corpuscular Hemoglobin 31.1 pg (27.0-31.0); Mean Platelet Volume 9.5 fL (7.4-10.4); Platelet Count 169 10x3/uL (130-400); RBC Distribution Width 14.5 % (11.5-14.5); Red Blood Cell (RBC) Count 3.51 mill/uL (4.70-6.10); White Blood Cell (WBC) Count 6.1 10x3/uL (4.8-10.8)
[2023-10-13 04:50] LABS: INR-International Normal Ratio 1.5
[2023-10-13 05:49] LABS: ALT (SGPT) 14 U/L (8-55); AST (SGOT) 22 U/L (5-34)
[2023-10-13] MEDS: Insulin Glargine 30 UNITS/0.3 ML VIAL SC SCH (08:38)
[2023-10-14 05:52] LABS: #Eosinphils 0.2 thou/uL (0.0-0.7); #Monocytes 0.6 thou/uL (0.11-0.59); #Neutrophils 2.7 thou/uL (1.40-6.50); %Basophils 0.1 % (0.0-1.0); %Eosinophils 3.4 % (0.0-10.0); %Monocytes 8.9 % (0.0-10.0); %Neutrophils 38.5 % (42.0-75.0); Hematocrit 31.5 % (42.0-52.0); Hemoglobin 10.5 g/dL (14.0-18.0); Mean Corpuscular HGB CONC 33.3 g/dL (32.0-36.0); Mean Corpuscular Hemoglobin 31.3 pg (27.0-31.0); Mean Platelet Volume 9.3 fL (7.4-10.4); Platelet Count 165 10x3/uL (130-400); RBC Distribution Width 14.4 % (11.5-14.5); Red Blood Cell (RBC) Count 3.35 mill/uL (4.70-6.10); White Blood Cell (WBC) Count 7.1 10x3/uL (4.8-10.8)
[2023-10-14 06:28] LABS: INR-International Normal Ratio 1.5; Prothrombin Time 17.8 sec (12.0-14.7)
[2023-10-14] MEDS: Warfarin Sodium 2.5 MG TAB PO SCH (17:24)
[2023-10-15 06:12] LABS: #Eosinphils 0.2 thou/uL (0.0-0.7); #Monocytes 0.6 thou/uL (0.11-0.59); #Neutrophils 3.4 thou/uL (1.40-6.50); %Basophils 0.3 % (0.0-1.0); %Eosinophils 3.3 % (0.0-10.0); %Lymphocytes 40.9 % (21.0-51.0); %Monocytes 8.6 % (0.0-10.0); %Neutrophils 46.6 % (42.0-75.0); Hematocrit 31.4 % (42.0-52.0); Hemoglobin 10.7 g/dL (14.0-18.0); Mean Corpuscular HGB CONC 34.1 g/dL (32.0-36.0); Mean Corpuscular Hemoglobin 31.8 pg (27.0-31.0); Mean Corpuscular Volume 93.2 fl (78.0-98.0); Mean Platelet Volume 9.6 fL (7.4-10.4); Platelet Count 168 10x3/uL (130-400); RBC Distribution Width 14.4 % (11.5-14.5); Red Blood Cell (RBC) Count 3.37 mill/uL (4.70-6.10); White Blood Cell (WBC) Count 7.3 10x3/uL (4.8-10.8)
[2023-10-15 06:20] LABS: INR-International Normal Ratio 1.6
[2023-10-15 16:14] VITALS: BMI 27.1
[2023-10-15] MEDS: Warfarin Sodium 2.5 MG TAB PO SCH (16:19)
[2023-10-16 06:50] LABS: #Eosinphils 0.3 thou/uL (0.0-0.7); #Monocytes 0.6 thou/uL (0.11-0.59); #Neutrophils 3.2 thou/uL (1.40-6.50); %Basophils 0.3 % (0.0-1.0); %Eosinophils 4.4 % (0.0-10.0); %Lymphocytes 37.9 % (21.0-51.0); %Monocytes 8.4 % (0.0-10.0); %Neutrophils 48.7 % (42.0-75.0); Hemoglobin 11.3 g/dL (14.0-18.0); Mean Corpuscular HGB CONC 34.2 g/dL (32.0-36.0); Mean Corpuscular Hemoglobin 31.9 pg (27.0-31.0); Mean Corpuscular Volume 93.2 fl (78.0-98.0); Mean Platelet Volume 9.4 fL (7.4-10.4); Platelet Count 170 10x3/uL (130-400); RBC Distribution Width 14.5 % (11.5-14.5); Red Blood Cell (RBC) Count 3.54 mill/uL (4.70-6.10); White Blood Cell (WBC) Count 6.7 10x3/uL (4.8-10.8)
[2023-10-16 07:03] LABS: INR-International Normal Ratio 1.7; Prothrombin Time 20.3 sec (12.0-14.7)
[2023-10-16] MEDS: Warfarin Sodium 2.5 MG TAB PO SCH (16:33)
[2023-10-16] MEDS: Warfarin Sodium 7.5 MG TAB PO SCH (16:33)
[2023-10-17 06:35] LABS: #Eosinphils 0.3 thou/uL (0.0-0.7); #Monocytes 0.6 thou/uL (0.11-0.59); #Neutrophils 3.1 thou/uL (1.40-6.50); %Basophils 0.3 % (0.0-1.0); %Eosinophils 4.5 % (0.0-10.0); %Lymphocytes 38.9 % (21.0-51.0); %Monocytes 8.8 % (0.0-10.0); %Neutrophils 47.2 % (42.0-75.0); Hematocrit 35.3 % (42.0-52.0); Hemoglobin 11.9 g/dL (14.0-18.0); Mean Corpuscular HGB CONC 33.7 g/dL (32.0-36.0); Mean Corpuscular Hemoglobin 31.2 pg (27.0-31.0); Mean Corpuscular Volume 92.4 fl (78.0-98.0); Mean Platelet Volume 9.5 fL (7.4-10.4); Platelet Count 192 10x3/uL (130-400); RBC Distribution Width 14.3 % (11.5-14.5); Red Blood Cell (RBC) Count 3.82 mill/uL (4.70-6.10); White Blood Cell (WBC) Count 6.5 10x3/uL (4.8-10.8)
[2023-10-17 06:53] LABS: INR-International Normal Ratio 2.2; Prothrombin Time 24.6 sec (12.0-14.7)
[2023-10-18 04:46] LABS: #Eosinphils 0.3 thou/uL (0.0-0.7); #Monocytes 0.7 thou/uL (0.11-0.59); %Basophils 0.3 % (0.0-1.0); %Eosinophils 3.2 % (0.0-10.0); %Lymphocytes 35.4 % (21.0-51.0); %Monocytes 8.8 % (0.0-10.0); %Neutrophils 51.9 % (42.0-75.0); Hematocrit 35.6 % (42.0-52.0); Mean Corpuscular HGB CONC 33.7 g/dL (32.0-36.0); Mean Corpuscular Hemoglobin 31.2 pg (27.0-31.0); Mean Corpuscular Volume 92.5 fl (78.0-98.0); Mean Platelet Volume 8.9 fL (7.4-10.4); Platelet Count 201 10x3/uL (130-400); RBC Distribution Width 14.3 % (11.5-14.5); Red Blood Cell (RBC) Count 3.85 mill/uL (4.70-6.10); White Blood Cell (WBC) Count 7.7 10x3/uL (4.8-10.8)
[2023-10-18 04:57] LABS: INR-International Normal Ratio 2.7; Prothrombin Time 28.5 sec (12.0-14.7)
[2023-10-18] MEDS: Warfarin Sodium 3 MG TAB PO SCH (16:44)
[2023-10-18] MEDS: GUAIFENESIN SF SOLN 200 MG/10 ML UDCUP PO PRN (21:28)
[2023-10-18] MEDS: Sodium Chloride 0.9% 500 ML IV SCH ×2 (23:15→23:45)
[2023-10-19 00:07] LABS: Anion Gap 10 mmol/L (10-20); BUN (Urea Nitrogen) 36 mg/dL (8.4-25.7); Calc. Creatinine Clearance 61 mL/min (70-130); Calcium 8.4 mg/dL (7.8-10.44); Carbon Dioxide 28 mmol/L (23-31); Chloride 98 mmol/L (98-107); Estimated GFR 59; Glucose 119 mg/dL (83-110); Magnesium 1.7 mg/dL (1.6-2.6); Potassium 4.6 mmol/L (3.5-5.1); Sodium 131 mmol/L (136-145)
[2023-10-19 00:18] LABS: Troponin I Less than 0.010 ng/mL (< 0.028)
[2023-10-19] MEDS: Sodium Chloride 0.9% 1,000 ML IV SCH (00:39)
[2023-10-19 00:53] LABS: Bacteria/HPF None Seen HPF (None Seen); Bilirubin Negative (Negative); Blood, Urine Negative (Negative); CAUTI Indications for Culture Alt mental st,lethar; Clarity Clear (Clear); Glucose, Urine (Dipstick) Normal (Negative); Ketone, Urine Negative (Negative); Leukocyte Negative Leu/uL (Negative); Nitrite Negative (Negative); Protein, Urine (Dipstick) Negative (Neg-Trace); RBC/HPF 0-3 HPF (0-3); Specific Gravity, Urine 1.014 (1.002-1.036); Squamous Epithelial None Seen HPF (0-3); WBC/HPF 0-3 HPF (0-3); pH, Urine 6.5 (5.0-9.0)
[2023-10-19 00:54] LABS: Urine Culture Reflex No No
[2023-10-19] MEDS: guaiFENesin ER 600 MG TAB PO SCH (01:46)
[2023-10-19] MEDS: Magnesium 2 GM/50 ML(in water) 2 GM in Premix 1 BAG IVPB SCH (01:46)
[2023-10-19] MEDS: Ipratropium/Albuterol 3 ML NEB NEB SCH (02:05)
[2023-10-19] MEDS: Albuterol 200 PUFF (6.7GM INHALER) INH SCH (03:28)
[2023-10-19] MEDS: Acetaminophen 325 MG TAB PO PRN (05:48)
[2023-10-19 06:24] LABS: INR-International Normal Ratio 3.4; Prothrombin Time 34.7 sec (12.0-14.7)
[2023-10-19 06:42] LABS: Anion Gap 8 mmol/L (10-20); BUN (Urea Nitrogen) 33 mg/dL (8.4-25.7); Calc. Creatinine Clearance 68 mL/min (70-130); Calcium 8.7 mg/dL (7.8-10.44); Carbon Dioxide 32 mmol/L (23-31); Chloride 98 mmol/L (98-107); Estimated GFR 67; Glucose 128 mg/dL (83-110); Magnesium 2.2 mg/dL (1.6-2.6); Potassium 4.4 mmol/L (3.5-5.1); Sodium 134 mmol/L (136-145)
[2023-10-19 08:14] VITALS: BP 126/65; TEMP 97.2
[2023-10-20] MEDS ORDERED: Warfarin Sodium 5 MG TAB PO SCH (17:00)
== END 2023-10-19 13:20 | DRG 178 ==
LOC: ERS 20:47 → IMCU/EMU 10-09 00:09 → T4-B 10-09 18:50
PROVIDERS: ADMIT Student in an Organized Health Care Education/Training Program; ATTEND Internal Medicine
PROC: XW033E5 Introduction of Remdesivir Anti-infective into Peripheral Vein, Percutaneous Approach, New Technology Group 5 (ICD-10-PCS; principal; 2023-10-09)
DX: U07.1 COVID-19 (principal); D68.9 Coagulation defect, unspecified; I50.22 Chronic systolic (congestive) heart failure; I48.91 Unspecified atrial fibrillation; E11.9 Type 2 diabetes mellitus without complications; D64.9 Anemia, unspecified; I95.2 Hypotension due to drugs; T46.5X5A Adverse effect of other antihypertensive drugs, initial encounter; I11.0 Hypertensive heart disease with heart failure; Z79.82 Long term (current) use of aspirin; Z79.899 Other long term (current) drug therapy; Z79.01 Long term (current) use of anticoagulants
CPT/HCPCS: 36415; 36416; 70450; 71045; 71275; 80048; 80053; 81001; 82550; 83605; 83690; 83735; 83880; 84443; 84450; 84460; 84484; 85025; 85610; 85730; 87040; 87086; 93005; 93010; 96365; 96366; 96375; C9113; J0248; J0692; J1100; J1265; J1815; J3370-JW; J3475; J7030; J7050; Q9967